=== PATIENT | female | born 1955 | race Caucasian/White ===

== ENCOUNTER 2025-04-26 20:19 | Emergency (ER) | payer BC, SELFPAY ==
[2025-04-26 20:20] VITALS: BP 139/67; RESP 16; TEMP 36.6; O2SAT 100; BMI 33.3
[2025-04-26 20:27] VITALS: PULSE 70
--- NOTE | 2025-04-26 20:29 | ECG_ITS ---
APPROVED REPORT Exam: Resting ECG HR:64 bpm ECG Measurements Heart Rate 64 AXES AK 180 P 70 QRSd 106 QRS -16 QT 428 T 49 QTc 437 Conclusion SINUS RHYTHM LOW QRS VOLTAGE IN PRECORDIAL LEADS [QRS DEFLECTION < 1.0 mV IN CHEST LEADS] PATTERN CONSISTENT WITH PULMONARY DISEASE No STEMI Electronically signed by : DANIELLE HUTSON, 04/29/2025 06:51:22
--- NOTE | 2025-04-26 20:43 | XR_ITS ---
PROCEDURE INFORMATION: Exam: XR Chest Exam date and time: 04/26/2025 8:52 PM Age: 69 years old Clinical indication: Pain; Chest pressure; Additional info: Cp SOA TECHNIQUE: Imaging protocol: Radiologic exam of the chest. Views: 1 view. COMPARISON: No relevant prior studies available. FINDINGS: Lungs: Unremarkable. No consolidation. Pleural spaces: Unremarkable. No pleural effusion. No pneumothorax. Heart/Mediastinum: Unremarkable. No cardiomegaly. Bones/joints: Unremarkable. IMPRESSION: No acute findings.
[2025-04-26 20:51] LABS: Hematocrit 36.7 % (37.0-47.0); Hemoglobin 11.9 g/dL (12.2-16.2); Immature Granulocytes % 0.2 %; Mean Corpuscular HGB Conc 32.4 g/dL (31.8-35.4); Mean Corpuscular Hemoglobin 27.7 pg (27.0-31.2); Mean Corpuscular Volume 85.5 fl (81-99); Nucleated Red Blood Cells % 0 %; Platelet Count 356 K/mm3 (142-424); Red Blood Count 4.29 M/mm3 (4.20-5.40); Red Cell Distribution Width-SD 44.6 fL; White Blood Count 10.7 K/mm3 (4.8-10.8)
--- OUTSIDE RECORDS SUMMARY | 2025-04-26 20:51 | XMS_ITS | Clinical Summary ---
Author Organization [facility] Address [address], [address] [place] [address] Care Team Providers Care Surveillance Officer Name Role Phone Wil Kenyon MD Primary Care Provider Allergies No known active allergies Medications omeprazole (PRILOSEC) 20 MG delayed release capsule Take 1 capsule by mouth in the morning and at bedtime Active docusate sodium (COLACE) 100 MG capsule Take 2 capsules by mouth 2 times daily Active Active Problems Problem Noted Date Diagnosed Date Chest pain 02/05/2025 Encounters Date Type Department Care Team Description 02/05/2025 8:15 PM EDT - 02/06/2025 11:02 AM EDT Hospital Encounter [facility] [address] [place] [address] Danisha Reina, Bryn Erickson, Matthew Pinto MD Joshi, Tilak R, MD Chest pain, unspecified type (Primary Dx); History of atrial fibrillation; Anticoagulated; Hypokalemia Discharge Disposition: Home or Self Care 02/05/2025 Travel from Last 3 Months Social History Tobacco Use Types Packs/Day Years Used Date Smoking Tobacco: Never Smokeless Tobacco: Never Tobacco Cessation:Counseling Given: Not Answered Alcohol Use Standard Drinks/Week Comments Never 0 (1 standard drink = 0.6 oz pur e alcohol) Housing Stability Vital Sign Answer Jonathon e Recorded In the last 12 months, was t here a time when you were not able to pay the mortgage or rent on time? No 02/06/2025 In the past 12 months, how m any times have you moved where you were living? 2 02/06/2025 At any time in the past 12 m [facility], were you homeless or living in a snf (including now)? No 02/06/2025 AUDIT-C Answer Date Recorded Q1: How often do you have a drink containing alcohol? Never 02/05/2025 Q2: How many drinks containi ng alcohol do you have on a typical day when you are drinking? Patient does not drink Q3: How often do you have si x or more drinks on one occasion? Never 02/05/2025 Hunger Vital Sign Answer Date Recorded Within the past 12 months, y ou worried that your food would run out before you got the money to buy more. Never true 02/07/20 25 Within the past 12 months, t he food you bought just didn't last and you didn't have money to get more. Never true 02/06/2025 PRAPARE - Transportation Answer Date Re corded In the past 12 months, has l ack of transportation kept you from medical appointments or from getting medications? No 01/18 In the past 12 months, has l ack of transportation kept you from meetings, work, or from getting things needed for daily living? No 02/06/2025 [facility] Utilities Answer Date Recorded In the past 12 months has th e electric, gas, oil, or water company threatened to shut off services in your home? No 02/06/2025 Interpersonal Safety Domain Source: IP Abuse Scr eening Answer Date Recorded Physical abuse Denies 02/05/2025 Verbal abuse Denies 02/05/2025 Emotional abuse Denies 02/05/2025 Financial abuse Denies 02/05/2025 Sexual abuse Denies 02/05/2025 Comments No Sex and Gender Information Value Date Recorded Sex Assigned at Not on file Legal Sex Female 8:14 PM EDT Gender Identity Not on file Sexual Orientation Not on file Last Filed Vital Signs Vital Sign Reading Time Taken Comments Blood Pressure 138/77 02/06/2025 7:13 AM EDT Pulse 65 02/06/2025 7:13 AM EDT Temperature 36.7 C (98.1 F) 02/06/2025 7:13 AM EDT Respiratory Rate 18 02/06/2025 7:13 AM EDT Oxygen Saturation 98% 02/06/2025 7:13 AM EDT Inhaled Oxygen Concentration - - Weight 93.8 kg (206 lb 10.9 oz) 02/06/2025 1:17 AM EDT Height 165.1 cm (5' 5 ) 02/06/2025 1:17 AM EDT Body Mass Index 34.39 02/06/2025 1:17 AM EDT Plan of Treatment Health Maintenance Due Date Last Done Comments Depression Screen 1968 Hepatitis C screen 1974 DTaP/Tdap/Td vaccine (1 - Tdap) 12/01/1975 Breast cancer screen 1996 Colonoscopy 2001 Colorectal Cancer Screen 2001 FIT/FOBT: Average risk 2001 Fecal-DNA (Cologuard): Average risk 2001 Sigmoidoscopy/CT colonography 2001 Pneumococcal 50+ years Vaccine (1 of 1 - PCV) 2006 Shingles vaccine (1 of 2) 2006 DEXA (modify frequency per FRAX score) 12/01/2011 Flu vaccine (#1) 12/17/2024 COVID-19 Vaccine (1 - 2023-2 5 season) 2025 Diabetes screen 02/07/2028 02/06/2025 Lipids 02/06/2030 02/06/2025 Respiratory Syncytial Virus (RSV) or age 60 yrs+ (1 - 1-dose 75+ series) 12/01/2031 GFR test (Diabetes, CKD 3-4, OR last GFR 15-59) Discontinued 02/06/2025, 02/05/2025 Hepatitis A vaccine Aged Out No longe r eligible based on patient's age to complete this topic Hepatitis B vaccine Aged Out No longe r eligible based on patient's age to complete this topic Hib vaccine Aged Out No longer eligi ble based on patient's age to complete this topic Meningococcal (ACWY) vaccine Aged Out No longer eligible based on patient's age to complete this topic Meningococcal B vaccine Aged Out No l onger eligible based on patient's age to complete this topic Polio vaccine Aged Out No longer elig ible based on patient's age to complete this topic Procedures Procedure Name Priority Date/Time Associated Diagnosis Comments EKG 12-LEAD STAT 02/06/2025 7:54 AM EDT MAGNESIUM Add-On 02/06/2025 4:29 AM EDT TSH REFLEX TO FT4 Add-On 02/06/2025 4:2 9 AM EDT LIPID PANEL Add-On 02/06/2025 4:29 AM EDT HEMOGLOBIN A1C Add-On 02/06/2025 4:29 AM EDT BASIC METABOLIC PANEL W/ REFLEX TO MG FOR LOW K Routine 02/06/2025 4:29 AM EDT EKG RHYTHM STRIP Routine 02/06/2025 1:47 AM EDT TROPONIN STAT 02/05/2025 11:15 PM EDT BRAIN NATRIURETIC PEPTIDE Add-On 02/05/2025 10:00 PM EDT MAGNESIUM Routine 02/05/2025 9:04 PM EDT TROPONIN STAT 02/05/2025 9:04 PM EDT BASIC METABOLIC PANEL W/ REFLEX TO MG FOR LOW K STAT 02/05/2025 9:04 PM EDT CBC WITH AUTO DIFFERENTIAL STAT 02/05/2025 9:04 PM EDT XR CHEST PORTABLE STAT 02/05/2025 9:0 3 PM EDT EKG 12-LEAD Routine 02/05/2025 8:19 PM EDT from Last 3 Months Results * EKG 12 Lead (02/06/2025 7:54 AM EDT) Only the most recent of2 resultswithin the time period is included. Ventricular Rate 66 BPM [facility] MUSE Atrial Rate 66 BPM [facility] MUSE P-R Interval 176 ms [facility] MUSE QRS Duration 100 ms [facility] MUSE Q-T Interval 446 ms [facility] MUSE QTc Calculation (Bazett) 467 ms [facility] MUSE P [place] 65 degrees SW[facility] MUSE R [place] -16 degrees SW[facility] MUSE T [place] 33 degrees SWOH MUSE Diagnosis Normal sinus rhythmNormal ECGNo previous ECGs availableConfirmed by YANI OROSCO [facility] ([id number]) on 02/06/2025 9:00:18 PM SWOH MUSE 02/06/2025 7:54 AM EDT 02/06/2025 9:00 PM EDT Anton Vega MD ECG ORDERABLES Final Result Performing Organization Address City/[facility]/ZIP Co de Phone Number [facility] MUSE * TSH reflex to FT4 (02/06/2025 4:29 AM EDT) [facility] TSH 1.20 0.27 - 4.20 uIU/mL 02/06/2025 4:29 AM EDT [facility] Blood BLOOD SPECIMEN / Unknown 02/06/2025 4:29 AM EDT 02/06/2025 7:03 AM EDT Bryn Schwarz DO CHEMISTRY ORDERABLES Final Result Performing Organization Address City/[facility]/ZIP Co de Phone Number [facility] [address] [place] [address], [facility] [phone] * (ABNORMAL) Basic Metabolic Panel w/ Reflex to MG (02/06/2025 4:29 AM EDT) Only the most recent of2 resultswithin the time period is included. [facility] Sodium 139 136 - 145 mmol/L 02/06/2025 4:29 AM EDT [facility] Potassium 4.1 3.5 - 5.1 mmol/L 02/06/2025 4:29 AM EDT [facility] Chloride 105 99 - 110 mmol/L 02/06/2025 4:29 AM EDT [facility] CO2 23 21 - 32 mmol/L 02/06/2025 4:29 AM EDT [facility] Anion Gap 11 3 - 16 mmol/L 02/06/2025 4:29 AM EDT [facility] Glucose 119(H) 70 - 99 mg/dL 02/06/2025 4:29 AM EDT [facility] BUN 14 7 - 20 mg/dL 02/06/2025 4:29 AM EDT [facility] Creatinine 0.9 0.6 - 1.2 mg/dL 02/06/2025 4:29 AM EDT [facility] Est, Glom Filt Rate 67 >60 mL/min/1.7 3m2 02/06/2025 4:29 AM EDT [facility] Comment: These results are not intended for use in patients <18 years of age. eGFR results are calculated without a race factor using the 2020 CKD-EPI equation. Careful clinical correlation is recommended, particularly when comparing to results calculated using previous equations. The CKD-EPI equation is less accurate in patients with extremes of muscle mass, extra-renal metabolism of creatine, excessive creatine ingestion, or following therapy that affects renal tubular secretion. Calcium 8.9 8.3 - 10.6 mg/dL 02/06/2025 4:29 AM EDT [facility] Blood BLOOD SPECIMEN / Unknown 02/06/2025 4:29 AM EDT 02/06/2025 4:32 AM EDT us Bryn Schwarz DO CHEMISTRY ORDERABLES Final Result [facility] [address] [place] [address], [facility] [phone] * Magnesium (02/06/2025 4:29 AM EDT) Only the most recent of2 resultswithin the time period is included. Pathologist [facility] Magnesium 2.0 1.8 - 2.4 mg/dL 02/06/2025 4:29 AM EDT [facility] Blood BLOOD SPECIMEN / Unknown 02/06/2025 4:29 AM EDT 02/06/2025 8:53 AM EDT us Ludy Juarez [employer] INTERN - AUDIOVISUAL LEAD TECHNICIAN CHEMISTRY ORDERABLES F inal Result Performing Organization Address City/[facility]/ZIP Co de Phone Number [facility] [address] [place] [address], [facility] [phone] * Hemoglobin A1C (02/06/2025 4:29 AM EDT) Hemoglobin A1C 5.4 % 02/06/2025 4:29 AM EDT [facility] Comment: Diagnosis of Diabetes: > or = 6.5% Increased risk of diabetes (Prediabetes): 5.7-6.4% Glycemic Control: Non Adults: <7.0% : <6.0% Estimated Avg Glucose 108 mg/dL 02/06/2025 4:29 AM EDT [facility] Blood BLOOD SPECIMEN / Unknown 02/06/2025 4:29 AM EDT 02/06/2025 7:01 AM EDT us Bryn Schwarz DO CHEMISTRY ORDERABLES Final Result Performing Organization Address City/[facility]/ZIP Co de Phone Number [facility] [address] [place] [address], [facility] [phone] [facility] [address] [place] [address], [facility] [phone] * (ABNORMAL) Lipid Panel (02/06/2025 4:29 AM EDT) [facility] Cholesterol, Total 248(H) <200 mg/dL 02/06/2025 4:29 AM EDT [facility] HDL 65 >40 mg/dL 02/06/2025 4:29 AM EDT [facility] Comment: An HDL cholesterol less than 40 mg/dL is low and constitutes a coronary heart disease risk factor. An HDL cholesterol greater than 60 mg/dL is a negative risk factor for coronary heart disease. LDL Cholesterol 171(H) 0 - 130 mg/dL 02/06/2025 4:29 AM EDT [facility] Comment: LDL Guidelines: <100 Desirable 100-129 Near to/above Desirable 130-159 Borderline >159 Undesirable Direct (measured) LDL and calculated LDL are not interchangeable tests. Triglycerides 58 <150 mg/dL 02/06/2025 4:29 AM EDT [facility] Blood BLOOD SPECIMEN / Unknown 02/06/2025 4:29 AM EDT 02/06/2025 7:03 AM EDT us Bryn Schwarz DO CHEMISTRY ORDERABLES Final Result [facility] [address] [place] [address], [facility] [phone] [facility] [address] [place] [address], [facility] [phone] * EKG Rhythm Strip (02/06/2025 1:47 AM EDT) 02/06/2025 1:47 AM EDT Narrative [facility] - 02/06/2025 1:55 AM EDT us Unknown Provider Result ECG ORDERABLES Final Re sult [facility] [address] [place] [address], [facility] [phone] * Troponin (02/05/2025 11:15 PM EDT) Only the most recent of2 resultswithin the time period is included. Troponin, High Sensitivity <6 0 - 14 ng/L 02/05/2025 11:15 PM EDT [facility] Comment: The high-sensitivity troponin T result should not be compared with other troponin methodologies. Blood BLOOD SPECIMEN / Unknown 02/05/2025 11:15 PM EDT 02/05/2025 11:19 PM EDT Danisha Reina DO CHEMISTRY ORDERABLES Final Result [facility] [address] [place] [address], [facility] [phone] * Brain natriuretic peptide (02/05/2025 10:00 PM EDT) Pathologist [facility] NT Pro-BNP 59 0 - 124 pg/mL 02/05/2025 10:00 PM EDT [facility] Blood BLOOD SPECIMEN / Unknown 02/05/2025 10:00 PM EDT 02/06/2025 2:49 AM EDT Bryn Schwarz DO CHEMISTRY ORDERABLES Final Result [facility] [address] [place] [address], [facility] [phone] * CBC with Auto Differential (02/05/2025 9:04 PM EDT) Pathologist [facility] WBC 7.5 4.0 - 11.0 k/uL 02/05/2025 9:04 PM EDT [facility] RBC 4.49 4.00 - 5.20 m/uL 02/05/2025 9:04 PM EDT [facility] Hemoglobin 12.3 12.0 - 16.0 g/dL 02/05/2025 9:04 PM EDT [facility] Hematocrit 37.2 36.0 - 48.0 % 02/05/2025 9:04 PM EDT [facility] MCV 82.9 80.0 - 100.0 fL 02/05/2025 9:04 PM EDT [facility] MCH 27.4 26.0 - 34.0 pg 02/05/2025 9:04 PM EDT [facility] MCHC 33.1 31.0 - 36.0 g/dL 02/05/2025 9:04 PM EDT [facility] RDW 14.5 12.4 - 15.4 % 02/05/2025 9:04 PM EDT [facility] Platelets 272 135 - 450 k/uL 02/05/2025 9:04 PM EDT [facility] MPV 10.5 9.4 - 12.4 fL 02/05/2025 9:04 PM EDT [facility] Neutrophils % 69 % 02/05/2025 9:04 PM EDT [facility] Lymphocytes % 25 % 02/05/2025 9:04 PM EDT [facility] Monocytes % 6 % 02/05/2025 9:04 PM EDT [facility] Eosinophils % 0 % 02/05/2025 9:04 PM EDT [facility] Basophils % 0 % 02/05/2025 9:04 PM EDT [facility] Immature Granulocytes % 0 0 % 02/05/2025 9:04 PM EDT [facility] Neutrophils Absolute 5.15 1.70 - 7.70 k/uL 02/05/2025 9:04 PM EDT [facility] Lymphocytes Absolute 1.85 1.00 - 5.10 k/uL 02/05/2025 9:04 PM EDT [facility] Monocytes Absolute 0.43 0.00 - 1.30 k/uL 02/05/2025 9:04 PM EDT [facility] Eosinophils Absolute 0.03 0.00 - 0.60 k/uL 02/05/2025 9:04 PM EDT [facility] Basophils Absolute 0.03 0.00 - 0.20 k/uL 02/05/2025 9:04 PM EDT [facility] Immature Granulocytes Absolute 0.02 0.00 - 0.50 k/uL 02/05/2025 9:04 PM EDT [facility] Blood BLOOD SPECIMEN / Unknown 02/05/2025 9:04 PM EDT 02/05/2025 9:07 PM EDT Danisha Reina DO HEMATOLOGY ORDERABLES Final Result [facility] [address] [place] [address], [facility] [phone] * XR CHEST PORTABLE (02/05/2025 9:03 PM EDT) Anatomical Region Laterality Modality Chest Digital Radiogra phy 02/05/2025 9:06 PM EDT Impressions 02/05/2025 9:06 PM EDT 1. No acute disease. Electronically signed by Jewel Light MD Narrative 02/05/2025 9:06 PM EDT DATE: 02/05/2025 EXAM: PORTABLE AP CHEST X-RAY, 9:01 PM INDICATION: cp, COMPARISON: none FINDINGS: HEART / MEDIASTINUM: Normal in size. LUNGS/PLEURA: Lungs are clear. BONES / SOFT TISSUES: No acute abnormality. OTHER: None. Procedure Note Jewel Light MD - 02/05/2025 DATE: 02/05/2025 EXAM: PORTABLE AP CHEST X-RAY, 9:01 PM INDICATION: cp, COMPARISON: none FINDINGS: HEART / MEDIASTINUM: Normal in size. LUNGS/PLEURA: Lungs are clear. BONES / SOFT TISSUES: No acute abnormality. OTHER: None. IMPRESSION: 1. No acute disease. Electronically signed by Jewel Light MD Danisha Reina DO IMG DIAGNOSTIC IMAGING ORDE RABLES Final Result from Last 3 Months Insurance [place] [employer] Advance Directives * Full Code (Latest Code Status on File) Date Activated Date Inactivated Comments 02/06/2025 2:47 AM 02/06/2025 1:02 PM Care Teams Surveillance Officer Relationship Specialty Start Date End Date Wil Kenyon MD [address] [phone] PCP - General 02/06/25
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
[2025-04-26 20:56] LABS: Alanine Aminotransferase 18 U/L (12-78); Albumin Level 4.3 g/dl (3.5-5.0); Albumin/Globulin Ratio 1.2 (1.1-1.8); Alkaline Phosphatase 109 U/L (38-126); Anion Gap 14.4 mEq/L (5-15); Aspartate Amino Transferase 25 U/L (14-36); Bilirubin,Total 0.4 mg/dl (0.2-1.3); Blood Urea Nitrogen 15 mg/dl (7-17); Calcium 9.0 mg/dl (8.4-10.2); Carbon Dioxide 28 mmol/L (22.0-30.0); Chloride 101 mmol/L (98-107); Creatinine Clearance Estimated 70 mL/min (50-200); Creatinine,Serum 1.10 mg/dl (0.52-1.04); Estimated Glomerular Filt Rate 49 ml/min (>60); GFR (African American) 60 ML/MIN (>60); Globulin 3.6 g/dL (1.3-3.2); Glucose 104 mg/dl (74-100); Magnesium 2.0 mg/dl (1.6-2.3); Potassium 3.4 mmoL/L (3.5-5.1); Sodium 140 mmol/L (136-145); Total Protein,Serum 7.9 g/dl (6.3-8.2)
[2025-04-26 21:18] LABS: Troponin I < 0.01 ng/ml (0.00-0.034)
--- NOTE | 2025-04-26 21:21 | ED_ITS ---
<Statement entered by Saba Ibarra DO - 04/27/25 00:20> I was consulted by the LYDIA, and we discussed the complexity of problems being addressed. I approve the treatment and management plan for this patient's care in the emergency department, thus performing a substantial portion of the medical decision making. Saba Ibarra DO Discharge Plan Disposition Patient Disposition: Home, Self-Care Condition: Good Prescriptions Prescriptions: No Action atorvastatin 20 mg Tablet 20 mg PO DAILY escitalopram oxalate [Lexapro] 20 mg Tablet 20 mg PO BID Prilosec 10 mg Susp,Delayed Release For Recon 10 mg PO BID Eliquis 5 mg Tablet 5 mg PO BID Referrals Follow up/Referrals: Wil Kenyon [Primary Care Provider, Medical] - See instructions Activity Restrictions/Add. Instructions Additional Instructions/Restrictions: Return to the emergency department for any acute or worsening symptoms. Clinical Impressions Clinical Impression: Chest pain Print Language Print Language: Russian Discharge ED Provider: Saba Ibarra HPI <Miroslava Alvarado APRN - Last Filed: 04/26/25 21:46> General Chief Complaint: Chest Pain Stated Complaint: Chest Pain Time Seen by Provider: 04/26/25 20:33 Mode of Arrival: EMS Source of Information: Patient Description of Symptoms (Recalled from ER Triage Doc. by RN): Patient was driving and started to have chest pain so she pulled over and called EMS; history of ablasion, no history of MA; Says pain is now 1/10 and that is in her stomach, not her chest; When she was having pain she states it felt like mscp tightness/pressure History of Present Illness HPI narrative: patient is a 69-year-old female PMHx A-fib (Eliquis) and health anxiety who presents to the ED for concerns of chest pain, intermittent bilateral upper extremity numbness and vomiting. Patient states her chest pain started while she was driving and felt like a pressure, she states that her bilateral upper extremities went numb and she began vomiting. She pulled over on the side of the road and called EMS. Patient states she has never had any cardiac history. She is compliant with her medications. Related Data Home Medications ?Medication ?Instructions ?Recorded ?Confirmed apixaban 5 mg tablet (Eliquis) 5 mg PO BID 04/26/25 atorvastatin 20 mg tablet 20 mg PO DAILY 04/26/2502/10 escitalopram oxalate 20 mg tablet 20 mg PO BID 5 04/26/25 (Lexapro) omeprazole magnesium 10 mg oral 10 mg PO BID 04/26/25 04/26/25 suspension,delayed release (Prilosec) Allergies Allergy/AdvReac Type Severity Reaction Status Date / Time No Known Allergies Allergy Verified 04/26/25 21:26 [facility] <Miroslava Alvarado APRN - Last Filed: 04/26/25 21:46> [facility] Disclaimer: The information contained in this section may have been updated after the patient was seen, as this information can be updated by other users. Medical History (Updated 04/27/25 @ 00:04 by Saba Ibarra DO) Anxiety about health Atrial fibrillation Surgical History (Updated 04/26/25 @ 21:22 by Analy Solis RN) H/O cardiac ablation Social History (Updated 04/26/25 @ 21:46 by Miroslava Alvarado APRN) Smoking Status: Never smoker alcohol intake: current current occupational status: unemployed Travel in the last 8 weeks?: None Have you lived/traveled outside US in past 30 days?: No Contact w/someone who lives/traveled outside US past 30 days?: No Exposure to someone with infectious disease in past 14 days?: No Do you have a fever (greater than 100.4 F or 38 C)?: No Have you tested positive for COVID-19?: No Exposed to someone with COVID-19 in past 14 days?: No Do you have a sore throat?: No Do you have a cough?: No Do you have any weakness?: No Do you have any diarrhea?: No Are you experiencing any unusual bleeding?: No Do you have any muscle aches/pain?: No Do you have any abdominal pain?: No Are you experiencing loss of taste or smell?: No <Miroslava Alvarado APRN - Last Filed: 04/26/25 21:46> ROS Obtained: Yes Systems reviewed as appropriate & no additional complaints except as documented Physical Exam <Miroslava Alvarado APRN - Last Filed: 04/26/25 21:46> General General appearance: alert Head Head exam: normocephalic Eye Eye exam: Present PERRL ENT ENT exam: Present normal exam Neck Neck exam: Present full ROM Respiratory Respiratory exam: Present normal lung sounds bilaterally Cardiovascular Cardiovascular exam: Present regular rate Abdominal Exam Abdominal exam: Present soft; Absent tenderness Extremities Exam Extremities exam: Present full ROM Back Exam Back exam: Present full ROM Neurological Exam Neurological exam: Present alert, oriented X3 and normal gait; Absent motor sensory deficit Skin Skin exam: Present warm and dry HEART Score <Miroslava Alvarado APRN - Last Filed: 04/26/25 21:46> HEART Score HEART Score assessment performed?: Yes History (anamnesis): Slightly suspicious ECG: Normal Age: >65 years Risk factors: 1-2 risk factors Troponin: </= normal limit HEART Score: 3 <Saba Ibarra DO - Last Filed: 04/27/25 00:20> HEART Score HEART Score: 3 Critical Care <Miroslava Alvarado APRN - Last Filed: 04/26/25 21:46> Critical Care Time Critical Care Time: No Medical Decision Making <Miroslava Alvarado APRN - Last Filed: 04/26/25 21:46> Ralph Inquiry Pt receiving controlled substance: No Vital Signs Vital Signs: 04/26/25 20:20 04/26/25 20:27 Temperature 97.9 F Temperature Source Oral Pulse Rate 70 Respiratory Rate 16 Blood Pressure [Right Arm] 139/67 Blood Pressure Mean [Right Arm] 91 Blood Pressure Source [Right Arm] Automatic Cuff Blood Pressure Position [Right Arm] Supine 02 Sat by Pulse Oximetry 100 Oxygen Delivery Method Room Air Lab Data Labs: Lab Results 04/26/25 20:00: WBC 10.7, RBC 4.29, Hgb 11.9 L, Hct 36.7 L, MCV 85.5, MCH 27.7, MCHC 32.4, RDW 14.4, Plt Count 356, MPV 10.7 H, Neut % (Auto) 43.2, Lymph % (Auto) 48.1, [place] % (Auto) 6.5, Eos % (Auto) 1.4, Baso % (Auto) 0.6, Neut # (Auto) 4.6, Lymph # (Auto) 5.2 H, [place] # (Auto) 0.7, Eos # (Auto) 0.2, Baso # (Auto) 0.1, Total Counted 100, Neutrophils % (Manual) 45, Lymphocytes % (Manual) 51 H, Monocytes % (Manual) 2, Eosinophils % (Manual) 2, Platelet Estimate Normal, RBC Morphology Normal, Sodium 140, Potassium 3.4 L, Chloride 101, Carbon Dioxide 28, Anion Gap 14.4, BUN 15, Creatinine 1.10 H, Estimated Creat Clear 70, Estimated GFR 49 L, Est GFR ( Amer) 60, Glucose 104 H, Calcium 9.0, Magnesium 2.0, Total Bilirubin 0.4, AST 25, ALT 18, Alkaline Phosphatase 109, Troponin I < 0.01, Total Protein 7.9, Albumin 4.3, Globulin 3.6 H, Albumin/Globulin Ratio 1.2 04/26/25 23:21: Troponin I < 0.01 04/26/25 20:00 04/26/25 20:00 Response Orders (Tests/Meds): ED MEDICATIONS Discontinued Medications Generic Name Dose Route Start Last Admin Trade Name Freq PRN Reason Stop Dose Admin Sodium Chloride 1,000 mls @ 999 mls/hr 04/26/25 20:43 04/26/25 23:26 Sod Chlor 0.9% 1000ml Bag IV 04/26/25 21:43 Infused .Q1H1M ONE Infusion Ondansetron HCl 4 mg 04/26/25 20:43 04/26/25 21:28 Ondansetron 4mg/2ml Vial IV 04/26/25 20:44 4 mg ONCE ONE Administration ORDERS Category Date Time Status CXR --portable [XR chest portable] Stat Exams 04/26/25 20:43 Completed CBC w/Auto Diff [Complete Blood Count Auto Diff] Stat Lab 04/26/25 20:00 Completed CMP [Comprehensive Metabolic Panel] Stat Lab 04/26/25 20:00 Completed Magnesium Stat Lab 04/26/25 20:00 Completed Trop I [Troponin I] Stat Lab 04/26/25 20:00 Completed Troponin I Q3H Lab 04/26/25 23:21 Completed Troponin I Q3H Lab 04/27/25 02:45 Ordered Urinalysis and Microscopic Stat Lab 04/26/25 20:44 Ordered MDM Narrative Medical Decision Narrative: In summary, patient is a 69-year-old female PMHx A-fib (Eliquis) and health anxiety who presents to the ED for concerns of chest pain, intermittent bilateral upper extremity numbness and vomiting. Patient states her chest pain started while she was driving and felt like a pressure, she states that her bilateral upper extremities went numb and she began vomiting. She pulled over on the side of the road and called EMS. Patient states she has never had any cardiac history. She is compliant with her medications. Patient states that and route via EMS she was given Zofran however still feels nauseous. Upon my initial evaluation patient is alert, oriented and cooperative. She was hemodynamically stable. Bilateral upper extremity sensation and neurovascular status intact. Differential diagnosis include ACS, pneumonia, pneumothorax, infectious process, electrolyte abnormality, among others. Discussed with patient and family that we will proceed with chest pain workup and symptomatically managed with normal saline and Zofran. CBC unremarkable for any leukocytosis, stable H&H. CMP unremarkable for any actionable abnormalities. First troponin < 0.01. Chest x-ray unremarkable for any acute findings. Upon reassessment, patient's condition has improved. She is no longer vomiting. Advised that we are waiting on a second troponin. Care transferred to attending, Dr. Ibarra pending second troponin. <Saba Ibarra, DO - Last Filed: 04/27/25 00:20> Vital Signs Vital Signs: 04/26/25 20:20 04/26/25 20:27 Temperature 97.9 F Temperature Source Oral Pulse Rate 70 Respiratory Rate 16 Blood Pressure [Right Arm] 139/67 Blood Pressure Mean [Right Arm] 91 Blood Pressure Source [Right Arm] Automatic Cuff Blood Pressure Position [Right Arm] Supine 02 Sat by Pulse Oximetry 100 Oxygen Delivery Method Room Air Lab Data Lab results reviewed: Yes I reviewed the patient's lab results. Labs: Lab Results 04/26/25 20:00: WBC 10.7, RBC 4.29, Hgb 11.9 L, Hct 36.7 L, MCV 85.5, MCH 27.7, MCHC 32.4, RDW 14.4, Plt Count 356, MPV 10.7 H, Neut % (Auto) 43.2, Lymph % (Auto) 48.1, [place] % (Auto) 6.5, Eos % (Auto) 1.4, Baso % (Auto) 0.6, Neut # (Auto) 4.6, Lymph # (Auto) 5.2 H, [place] # (Auto) 0.7, Eos # (Auto) 0.2, Baso # (Auto) 0.1, Total Counted 100, Neutrophils % (Manual) 45, Lymphocytes % (Manual) 51 H, Monocytes % (Manual) 2, Eosinophils % (Manual) 2, Platelet Estimate Normal, RBC Morphology Normal, Sodium 140, Potassium 3.4 L, Chloride 101, Carbon Dioxide 28, Anion Gap 14.4, BUN 15, Creatinine 1.10 H, Estimated Creat Clear 70, Estimated GFR 49 L, Est GFR ( Amer) 60, Glucose 104 H, Calcium 9.0, Magnesium 2.0, Total Bilirubin 0.4, AST 25, ALT 18, Alkaline Phosphatase 109, Troponin I < 0.01, Total Protein 7.9, Albumin 4.3, Globulin 3.6 H, Albumin/Globulin Ratio 1.2 04/26/25 23:21: Troponin I < 0.01 Response Orders (Tests/Meds): ED MEDICATIONS Discontinued Medications Generic Name Dose Route Start Last Admin Trade Name Freq PRN Reason Stop Dose Admin Sodium Chloride 1,000 mls @ 999 mls/hr 04/26/25 20:43 04/26/25 23:26 Sod Chlor 0.9% 1000ml Bag IV 04/26/25 21:43 Infused .Q1H1M ONE Infusion Ondansetron HCl 4 mg 04/26/25 20:43 04/26/25 21:28 Ondansetron 4mg/2ml Vial IV 04/26/25 20:44 4 mg ONCE ONE Administration ORDERS Category Date Time Status CXR --portable [XR chest portable] Stat Exams 04/26/25 20:43 Completed CBC w/Auto Diff [Complete Blood Count Auto Diff] Stat Lab 04/26/25 20:00 Completed CMP [Comprehensive Metabolic Panel] Stat Lab 04/26/25 20:00 Completed Magnesium Stat Lab 04/26/25 20:00 Completed Trop I [Troponin I] Stat Lab 04/26/25 20:00 Completed Troponin I Q3H Lab 04/26/25 23:21 Completed Troponin I Q3H Lab 04/27/25 02:45 Ordered Urinalysis and Microscopic Stat Lab 04/26/25 20:44 Ordered MDM Narrative Medical Decision Narrative: In summary, patient is a 69-year-old female PMHx A-fib (Eliquis) and health anxiety who presents to the ED for concerns of chest pain, intermittent bilateral upper extremity numbness and vomiting. Patient states her chest pain started while she was driving and felt like a pressure, she states that her bilateral upper extremities went numb and she began vomiting. She pulled over on the side of the road and called EMS. Patient states she has never had any cardiac history. She is compliant with her medications. Patient states that and route via EMS she was given Zofran however still feels nauseous. Upon my initial evaluation patient is alert, oriented and cooperative. She was hemodynamically stable. Bilateral upper extremity sensation and neurovascular status intact. Differential diagnosis include ACS, pneumonia, pneumothorax, infectious process, electrolyte abnormality, among others. Discussed with patient and family that we will proceed with chest pain workup and symptomatically managed with normal saline and Zofran. CBC unremarkable for any leukocytosis, stable H&H. CMP unremarkable for any actionable abnormalities. First troponin < 0.01. Chest x-ray unremarkable for any acute findings. Upon reassessment, patient's condition has improved. She is no longer vomiting. Advised that we are waiting on a second troponin. Care transferred to attending, Dr. Ibarra pending second troponin. Saba Ibarra, Patient second troponin was normal at less than 0.01. Patient was asymptomatic at this time. Patient has a low heart score therefore at this time I felt the patient was stable and appropriate for discharge home.
[2025-04-26] MEDS: ONDANSETRON 4MG/2ML VIAL 4 MG IV (21:28)
[2025-04-26] MEDS: 0.9 % SODIUM CHLORIDE 1000ML 1,000 ML 999 ML IV (21:29)
[2025-04-26 22:24] LABS: Total Cells Counted 100
[2025-04-26 22:25] LABS: RBC Morphology Normal
[2025-04-26 23:51] LABS: Troponin I < 0.01 ng/ml (0.00-0.034)
[2025-04-27 00:26] VITALS: BP 132/64; PULSE 68; RESP 18; TEMP 36.8; O2SAT 99
== END 2025-04-27 00:33 | disposition home or self-care (01) ==
PROVIDERS: Nurse Practitioner; Emergency Provider Student in an Organized Health Care Education/Training Program; PCP Internal Medicine
DX: R07.9 Chest pain, unspecified (principal); I48.91 Unspecified atrial fibrillation; Z79.01 Long term (current) use of anticoagulants; R20.0 Anesthesia of skin; R11.10 Vomiting, unspecified; F41.9 Anxiety disorder, unspecified; Z79.899 Other long term (current) drug therapy
CPT/HCPCS: 71045; 80053; 83735; 84484; 85007; 85025; 85027; 93005; 96361; 96374; 99285; J2405; J7030